=== PATIENT | female | born 1960 | race Caucasian/White ===

== ENCOUNTER 2016-10-01 11:53 | Emergency (ER) | payer BC ==
[2016-10-01 12:02] VITALS: O2SAT 98
--- NOTE | 2016-10-01 12:26 | EDPHY ---
H & P Time Seen by Provider: 10/01/16 12:25 HPI/ROS: CHIEF COMPLAINT: Right foot wound HISTORY OF PRESENT ILLNESS: This patient is a 56-year-old diabetic female who presents to the Emergency Department complaining of increased pain and swelling to the site of a wound on the dorsum of her right foot obtained one week prior to arrival. She is unsure how she originally lacerated her foot. She has been treating her wound to daily salt baths and just started a course of Bactrim two days ago, which she had at home and started without the instruction of a physician. She denies fever, chills, discharge from the wound, or any additional complaints. Last Tetanus shot was within the last two years. REVIEW OF SYSTEMS: Constitutional: No fever, no chills Musculoskeletal: As in HPI Skin: +two foot abrasions, rash Past Medical/Surgical History: Diabetes Social History: Living in an in [place]. Smoking Status: Never smoked Physical Exam: General Appearance: Alert, no distress, afebrile Skin: Warm and dry, no rash Extremities: Two 1cm abrasions on dorsal aspect of left foot with surrounding tenderness. Minimal erythema to the abrasion on lateral aspect of foot. Diffuse swelling of the left foot. Psychiatric: Mood and affect normal Constitutional: Initial Vital Signs Temperature (C) 36.5 C 10/01/16 12:00 Heart Rate 75 10/01/16 12:00 Respiratory Rate 20 10/01/16 12:00 Blood Pressure 140/87 H 10/01/16 12:00 O2 Sat (%) 98 10/01/16 12:00 O2 Delivery Mode Room Air Allergies/Adverse Reactions: No Known Allergies Allergy (Unverified 10/01/16 11:58) Home Medications: Medication Instructions Recorded Inderal 10mg (*) 10/01/16 Insulin NPH Hum/Reg Insulin Hm 10/01/16 Levemir 10/01/16 Lisinopril 10/01/16 Neurontin 10/01/16 Medical Decision Making ED Course/Re-evaluation: 56-year-old diabetic female presents with swelling and tenderness surrounding two wounds to the dorsum of her left foot. She has been taking Bactrim for two days without improvement. She denies fever or chills and is afebrile at time of presentation. It is unclear if she has an infection; however, given her history of diabetes, will proceed with antibiotic treatment for prophylaxis. The patient is agreeable to this. She will be given the opportunity to shower to clean her wounds here in the ED prior to discharge. She is given [facility] follow-up and will be discharged home in good condition. Departure - Departure Disposition: Home, Routine, Self-Care Clinical Impression: Cellulitis of left foot Condition: Good Instructions: Cellulitis (ED) Additional Instructions: 1. Take the full course of your antibiotic as prescribed to treat your infection. 2. Keep your foot elevated as often as possible. Ensure that your wound and surrounding skin is kept clean and dry. 3. Follow-up with [facility] for reevaluation in 2-3 days. 4. Return tot he Emergency Department if you experience increased pain or swelling, discharge from your wound, red streaking up your leg, fever or chills , or other serious concerns. Referrals: [facility],. [Clinic] - As per Instructions Report Scribed for: Lisa Gomez Report Scribed by: Genet Whatley Date of Report: 10/01/16 Time of Report: 12:26 Physician Review and Approval Statement: 10/01/16 12:26 Portions of this note were transcribed by a medical registrar. I personally performed a history, physical exam, medical decision making, and confirmed accuracy of information the transcribed note.
[2016-10-01 12:59] VITALS: BP 139/85; PULSE 72; RESP 16; TEMP 98.2
== END 2016-10-01 12:58 | disposition home or self-care (01) ==
DX: L03.116 Cellulitis of left lower limb (principal); E11.9 Type 2 diabetes mellitus without complications; Z79.4 Long term (current) use of insulin